=== PATIENT | female | born 1980 | race Two or more races ===

== ENCOUNTER 2016-05-12 14:28 | Emergency (ER) | payer OTHER ==
[2016-05-12] MEDS ORDERED: SODIUM CHLORIDE 0.9% 1000 ML INFUS.BAG IV PRN (14:41)
[2016-05-12] MEDS ORDERED: SODIUM CHLORIDE 1,000 ML IV STA (14:41)
--- NOTE | 2016-05-12 14:41 | PDOC ---
Rapid Medical Evaluation Time Seen by Provider: 05/12/16 14:35 Medical Evaluation: 05/12/16 14:38 I have performed a brief in-person evaluation of this patient. The patient presents with a chief complaint of: fever, body aches, cough, lower abd pain and recently diagnosed UTI not improving on abx x3d (? clotrimazole? - prescribed in [place]) Pertinent physical exam findings: T 101, P 122 lungs clear abd benign I have ordered the following: sepsis protocol initiated influenza The patient will proceed to the ED for further evaluation.
[2016-05-12 14:42] VITALS: BMI 25.8
[2016-05-12] MEDS ORDERED: ACETAMINOPHEN 500 MG TABLET (FP) PO ONE (14:42)
[2016-05-12] MEDS ORDERED: ACETAMINOPHEN 325 MG TABLET (FP) ONE (14:56)
[2016-05-12 15:16] LABS: BASOPHIL 0.2 % (0-2.0); MCH 26.6 pg (25.7-33.7); MCHC 33.9 g/dl (32.0-36.0); MEAN CELL VOLUME 78.6 fl (80-96); MEAN PLT VOLUME 8.8 fl (7.5-11.1); NEUTROPHILS 78.3 % (42.8-82.8); PLATELET COUNT 214 K/MM3 (134-434); RDW 17.5 % (11.6-15.6); WHITE BLOOD COUNT 6.3 K/mm3 (4.0-10.0)
[2016-05-12 15:30] LABS: URINE APPEARANCE CLOUDY; URINE BILIRUBIN NEGATIVE (NEGATIVE); URINE COLOR YELLOW; URINE GLUCOSE (UA) NEGATIVE (NEGATIVE); URINE KETONE NEGATIVE (NEGATIVE); URINE NITRITE NEGATIVE (NEGATIVE); URINE UROBILINOGEN NEGATIVE E.U./dl (0.2-1.0)
[2016-05-12 15:31] LABS: URINE BLOOD 1+ (NEGATIVE); URINE LEUK ESTERASE 3+ (NEGATIVE); URINE PROTEIN 1+ (NEGATIVE)
[2016-05-12 15:31] LABS: INR 1.46 (0.82-1.09); PROTHROMBIN TIME (PATIENT) 16.2 SEC (9.98-11.88)
[2016-05-12 15:34] LABS: GRANULAR CASTS 1 /lpf; URINE MUCUS RARE; URINE RBC 12 /hpf (0-3); URINE WBC 447 /hpf (3-5)
[2016-05-12 15:41] LABS: ALBUMIN 3.6 g/dl (3.4-5.0); ALK PHOS 178 U/L (45-117); ANION GAP 9 (8-16); BILIRUBIN,TOTAL 0.4 mg/dL (0.2-1.0); CALCIUM 8.8 mg/dL (8.5-10.1); CO2 28 mmol/L (21-32); CREATININE 0.9 mg/dL (0.55-1.02); GLUCOSE,RANDOM 98 mg/dL (74-106); SGOT/AST 114 U/L (15-37); SGPT/ALT 200 U/L (12-78); TOT PROT 7.6 g/dl (6.4-8.2)
[2016-05-12 15:44] LABS: TROPONIN I < 0.02 ng/ml (0.00-0.05)
[2016-05-12 16:00] LABS: VENOUS BLOOD GAS HCO3 23.7 meq/L (19-25)
[2016-05-12 16:15] LABS: VENOUS PH 7.43 (7.32-7.42)
[2016-05-12] MEDS ORDERED: LEVOFLOXACIN 750 MG IVPB 150 ML IVPB ONE ×2 (16:21→17:17)
--- NOTE | 2016-05-12 16:28 | PDOC ---
History of Present Illness - General Chief Complaint: Pain, Acute Stated Complaint: ABD/FLANK PAIN,FEVER Time Seen by Provider: 05/12/16 14:35 History Source: Patient Exam Limitations: No Limitations - History of Present Illness Initial Comments: 05/12/16 16:09 35-year-old female presents the ED with 4 days of suprapubic pressure, dysuria now with fever, headache, sore throat, and decreased by mouth intake secondary to intermittent nausea. Patient states was in [place] when she started with symptoms and was given antibiotic by a physician there which she states did not improve her symptoms. Patient does also complain of mild dry cough but denies shortness of breath, productive cough, shortness of breath, lower extremity edema, or calf tenderness. Patient denies medical history. Timing/Duration: getting worse Severity: moderate Associated Symptoms: reports: cough, fever/chills, headaches, loss of appetite, nausea/vomiting Past History - Travel Traveled outside of the country in the last 30 days: Yes Close contact w/someone who was outside of country & ill: No - Past Medical History Allergies/Adverse Reactions: Allergies Allergy/AdvReac Type Severity Reaction Status Date / Time No Known Allergies Allergy Verified 05/12/16 14:38 Home Medications: Ambulatory Orders Levofloxacin [Levaquin] 750 mg PO DAILY #4 tab 05/12/16 Other medical history: DENIES. - Reproductive History LMP Normal: Yes Is Patient Now?: No - Psycho/Social/Smoking Cessation Hx Suicidal Ideation: No Smoking History: Never smoked Patient Lives Alone: No Lives with/in: spouse/SO Review of Systems - Review of Systems Able to Perform ROS?: Yes Constitutional: Yes: Chills, Fever, Weakness HEENTM: Yes: Throat Pain Respiratory: Yes: Cough Cardiac (ROS): No: Symptoms Reported ABD/GI: Yes: Nausea, Poor Appetite, Poor Fluid Intake, Abdominal cramping : Yes: Dysuria, Frequency, Flank Pain (mild right) Musculoskeletal: No: Symptoms Reported Integumentary: No: Symptoms Reported Neurological: Yes: Headache (frontal) *Physical Exam - Vital Signs Last Vital Signs Temp Pulse Resp BP Pulse Ox 101 F H 122 H 17 129/80 99 05/12/16 14:38 05/12/16 14:38 05/12/16 14:38 05/12/16 14:38 05/12/16 14:38 - Physical Exam General Appearance: Yes: Nourished, Appropriately Dressed. No: Apparent Distress HEENT: positive: EOMI, OZZY, Pharynx Normal. negative: Pale Conjunctivae Neck: positive: Supple Respiratory/Chest: positive: Lungs Clear, Normal Breath Sounds. negative: Respiratory Distress, Accessory Muscle Use Cardiovascular: positive: Regular Rhythm, Tachycardia. negative: Murmur Gastrointestinal/Abdominal: positive: Soft, Tenderness (midsuprapubic) Musculoskeletal: positive: CVA Tenderness (R) (right) Extremity: positive: Normal Capillary Refill. negative: Pedal Edema Integumentary: positive: Normal Color, Warm, Moist Neurologic: positive: Motor Strength 5/5 (ambulatory) ED Treatment Course - LABORATORY CBC & Chemistry Diagram: 05/12/16 15:00 05/12/16 15:00 - ADDITIONAL ORDERS Additional order review: Laboratory Results 05/12/16 05/12/16 05/12/16 15:40 15:15 15:00 INR PTT (Actin FS) VBG pH 7.43 H POC VBG pCO2 36.5 L POC VBG pO2 49.6 H Mixed VBG HCO3 23.7 Sodium 137 Potassium 4.2 Chloride 100 Carbon Dioxide 28 Anion Gap 9 BUN 5 L Creatinine 0.9 Creat Clearance w eGFR > 60 Random Glucose 98 Calcium 8.8 Total Bilirubin 0.4 AST 114 H ALT 200 H Alkaline Phosphatase 178 H Creatine Kinase 79 Troponin I < 0.02 Total Protein 7.6 Albumin 3.6 Urine Color Yellow Urine Appearance Cloudy Urine pH 5.0 Ur Specific [place] 1.012 Urine Protein 1+ H Urine Glucose (UA) Negative Urine Ketones Negative Urine Blood 1+ H Urine Nitrite Negative Urine Bilirubin Negative Urine Urobilinogen Negative Ur Leukocyte Esterase 3+ H Urine RBC 12 Urine WBC 447 Ur Epithelial Cells Rare Granular Casts 1 Urine Mucus Rare Urine HCG, Qual 05/12/16 05/12/16 15:00 14:42 INR 1.46 H PTT (Actin FS) 33.0 VBG pH POC VBG pCO2 POC VBG pO2 Mixed VBG HCO3 Sodium Potassium Chloride Carbon Dioxide Anion Gap BUN Creatinine Creat Clearance w eGFR Random Glucose Calcium Total Bilirubin AST ALT Alkaline Phosphatase Creatine Kinase Troponin I Total Protein Albumin Urine Color Urine Appearance Urine pH Ur Specific [place] Urine Protein Urine Glucose (UA) Urine Ketones Urine Blood Urine Nitrite Urine Bilirubin Urine Urobilinogen Ur Leukocyte Esterase Urine RBC Urine WBC Ur Epithelial Cells Granular Casts Urine Mucus Urine HCG, Qual Negative 05/12/16 15:00 Influenza Types A,B Antigen (BRANDEN) - Final Nasopharyngeal Swab - Final 05/12/16 15:00 RBC 4.26 MCV 78.6 L MCHC 33.9 RDW 17.5 H MPV 8.8 Neutrophils % 78.3 Lymphocytes % 10.7 Monocytes % 10.8 H Eosinophils % 0.0 Basophils % 0.2 - Medications Given in the ED: ED Medications Discontinued Medications Generic Name Dose Route Start Last Admin Trade Name Freq PRN Reason Stop Dose Admin Acetaminophen 1,000 mg 05/12/16 14:42 05/12/16 15:22 Tylenol - PO 05/12/16 14:43 1,000 mg ONCE ONE Administration Sodium Chloride 1,000 mls @ 1,000 mls/hr 05/12/16 14:41 05/12/16 15:52 Normal Saline - IV 05/12/16 15:40 1,000 mls/hr ASDIR STA Administration Medical Decision Making - Medical Decision Making 05/12/16 16:06 Patient multiple complaints including headache, throat pain, neck pain, cough, decreased appetite, nausea, suprapubic pain, dysuria, and weakness. Patient recently placed in a direct for urinary tract infection. Patient with likely pyelonephritis. Septic workup initiated including influenza due to travel. IV fluids initiated and Tylenol given for fever 05/12/16 18:01 influenza negative Laboratory Tests 05/12/16 05/12/16 05/12/16 14:41 14:42 15:00 WBC 6.3 Hgb 11.4 Hct 33.5 Plt Count 214 Neutrophils % 78.3 INR VBG pH POC VBG pCO2 POC VBG pO2 Sodium Potassium Chloride Carbon Dioxide Anion Gap BUN Creatinine Random Glucose Lactic Acid AST ALT Alkaline Phosphatase Creatine Kinase Troponin I Urine Protein Urine Blood Urine Urobilinogen Urine RBC Urine WBC Urine HCG, Qual Negative Blood Type O POSITIVE 05/12/16 05/12/16 05/12/16 15:00 15:00 15:15 WBC Hgb Hct Plt Count Neutrophils % INR 1.46 H VBG pH POC VBG pCO2 POC VBG pO2 Sodium 137 Potassium 4.2 Chloride 100 Carbon Dioxide 28 Anion Gap 9 BUN 5 L Creatinine 0.9 Random Glucose 98 Lactic Acid AST 114 H ALT 200 H Alkaline Phosphatase 178 H Creatine Kinase 79 Troponin I < 0.02 Urine Protein 1+ H Urine Blood 1+ H Urine Urobilinogen Negative Urine RBC 12 Urine WBC 447 Urine HCG, Qual Blood Type 05/12/16 05/12/16 15:40 15:50 WBC Hgb Hct Plt Count Neutrophils % INR VBG pH 7.43 H POC VBG pCO2 36.5 L POC VBG pO2 49.6 H Sodium Potassium Chloride Carbon Dioxide Anion Gap BUN Creatinine Random Glucose Lactic Acid 0.909 AST ALT Alkaline Phosphatase Creatine Kinase Troponin I Urine Protein Urine Blood Urine Urobilinogen Urine RBC Urine WBC Urine HCG, Qual Blood Type Patient ordered for Levaquin 750mg iv and will be discharged home with the same for the next 4 days. Patient will be revitalized. 05/12/16 18:03 Selected Entries 05/12/16 17:14 Temperature 98.8 F Pulse Rate [ 89 Right] Respiratory 16 Rate Blood Pressure 116/73 [Right Arm] O2 Sat by Pulse 98 Oximetry (%) *DC/Admit/Observation/Transfer Diagnosis at time of Disposition: Pyelonephritis - Discharge Dispostion Disposition: HOME Condition at time of disposition: Improved - Prescriptions Prescriptions: Levofloxacin [Levaquin] 750 mg PO DAILY #4 tab - Referrals Referrals: Ivanna Nova [Primary Care Provider] - - Patient Instructions Printed Discharge Instructions: DI for Kidney Infection Additional Instructions: Please take the antibiotic starting tomorrow since your given your first dose here in the ER and continue it for the next 4 days. take Tylenol for discomfort or fever. Please drink plenty of fluids and return to ED if symptoms worsen. - Post Discharge Activity Work/School Note: Back to Work
[2016-05-12 18:54] VITALS: BP 121/74; PULSE 97; TEMP 98.2
== END 2016-05-12 18:45 | disposition home or self-care (01) ==
LOC: JER 14:28
PROC: 3E0337Z Introduction of Electrolytic and Water Balance Substance into Peripheral Vein, Percutaneous Approach (ICD-10-PCS; principal; 2016-05-12)
PROC: 3E03329 Introduction of Other Anti-infective into Peripheral Vein, Percutaneous Approach (ICD-10-PCS; 2016-05-12)
DX: N12 Tubulo-interstitial nephritis, not specified as acute or chronic (principal)
CPT/HCPCS: 36415; 80053; 81003; 81015; 82550; 82803; 83605; 84484; 84703; 85025; 85610; 85730; 86850; 86900; 86901; 87040; 87086; 87186; 87804; 96361; 96365; 99283-25